=== PATIENT | male | born 1990 | race Caucasian/White ===

== ENCOUNTER 2016-09-16 16:06 | Emergency (ER) | payer OTHER ==
[2016-09-16 16:23] VITALS: BP 129/80
--- NOTE | 2016-09-16 17:21 | UC ---
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 no blood in stool 5 pound wt loss - History of Current Complaint Chief Complaint: UCAbdominalPain Stated Complaint: LEFT SIDE ABD PAIN 4 DAYS Time Seen by Provider: 09/16/16 17:02 Hx Obtained From: Patient Onset/Duration: Gradual Onset, Lasting Minutes, Lasting Days Severity Initially: Mild Severity Currently: Mild Pain Intensity: 2 Pain Scale Used: 0-10 Numeric Location: Other - see image Radiates: No Character: Aching, Dull Aggravating Factor(s):: Movement Alleviating Factor(s): Rest Associated Signs And Symptoms: Negative: Diaphoresis, Fever, Cough, Chest Pain, Dizzy, Back Pain, Constipation, Blood in Stool, Urinary Symptoms, Decreased Appetite, Nausea, Vomiting, Diarrhea, Penile Discharge Male Torso: 1 - pain - Allergies/Home Medications Allergies/Adverse Reactions: Allergies Allergy/AdvReac Type Severity Reaction Status Date / Time No Known Allergies Allergy Verified 09/16/16 16:23 Home Medications: Home Medications Pancrelipase (Lipase-Protease- [Creon 6000 Unit] 36,000 units PO TID 09/16/16 [ History Confirmed 09/16/16] PMH/Surg Hx/FS Hx/Imm Hx Endocrine History Of: Denies: Diabetes, Thyroid Disease, Hyperthyroidism, Hypothyroidism, Dyslipidemia Cardiovascular History Of: Denies: Cardiac Disorders, Hypertension, Pacemaker/ICD, Myocardial Infarction , Congestive Heart Failure, Atrial Fibrillation, Deep Vein Thrombosis, Bleeding Disorders Respiratory History Of: Denies: COPD, Asthma, Bronchitis, Pneumonia, Pulmonary Embolism GI/ History Of: Denies: Gastroesophageal Reflux, Ulcer, Gastrointestinal Bleed, Gall Bladder Disease, Kidney Stones, Diverticulitis, Renal Disease, Urosepsis Neurological History Of: Denies: TIA, CVA, Dementia, Seizures, Migraine Psychological History Of: Denies: Anxiety, Depression, Bipolar Disorder, Schizophrenia, Post Traumatic Stress Disorder Cancer History Of: Denies: Lung Cancer, Colorectal Cancer, Breast Cancer, Prostate Cancer, Cervical Cancer Other History Of: Negative For: HIV, Hepatitis B, Hepatitis C - Surgical History Surgical History: Yes Surgery Procedure, Year, and Place: WISDOM TEETH EXTRACTIONS - Family History Known Family History: Positive: None - Social History Alcohol Use: Weekly Substance Use Type: None Smoking Status (MU): Never Smoked Tobacco - Immunization History Most Recent Influenza Vaccination: no Review of Systems Constitutional: Fatigue Skin: Negative Eyes: Negative ENT: Negative Respiratory: Negative Cardiovascular: Negative Gastrointestinal: Abdominal Pain Genitourinary: Negative Motor: Negative Neurovascular: Negative Musculoskeletal: Negative Neurological: Negative Psychological: Negative All Other Systems Reviewed And Are Negative: Yes Physical Exam Triage Information Reviewed: Yes Appearance: Well-Appearing, No Pain Distress, Well-Nourished, Thin Vital Signs: Initial Vital Signs Temp 98.7 F 09/16/16 16:18 Pulse 88 09/16/16 16:18 Resp 16 09/16/16 16:18 BP 129/80 09/16/16 16:18 Pulse Ox 100 09/16/16 16:18 Vital Signs Reviewed: Yes Eyes: Positive: Conjunctiva Clear ENT: Positive: Hearing grossly normal. Negative: Nasal congestion, Nasal drainage, Trismus, Muffled/hoarse voice Neck: Positive: Supple, Nontender Respiratory: Positive: Lungs clear, Normal breath sounds, No respiratory distress Cardiovascular: Positive: RRR, No Murmur Abdomen Description: Positive: No Organomegaly, Soft. Negative: Nontender - see image, Bruit, Splenomegaly Bowel Sounds: Positive: Present Musculoskeletal: Positive: ROM Intact, No Edema Neurological: Positive: Alert Psychological Exam: Normal Skin Exam: Normal Skin: Positive: rashes Abd Pain Male Course/Dx - Differential Dx/Clinical Impression Provider Diagnoses: lefe sided abd pain of uncertain cause Discharge - Discharge Plan Condition: Stable Disposition: HOME Patient Education Materials: Acute Abdominal Pain (ED) Referrals: Get Haji DO [Primary Care Provider] - As Soon As Possible Additional Instructions: blood work is pending I am unsure of the cause of your pain I suggest you go to the ER for: worsening pain fever vomiting If symptoms persist you may need further evaluation (colonoscopy/imaging) tylenol for pain Images Front/Back of Body, Lg (Avery): 1 - tender
--- NOTE | 2016-09-16 17:57 | RAD ---
Indication: 4 days LEFT lower quadrant abdominal pain. Comparison: None. Technique: Supine abdomen. Report: Normal bowel gas pattern. No suspicious calcifications or mass effect. Unremarkable soft tissue contours. Clear lung bases. IMPRESSION: Negative exam.
[2016-09-17 12:18] LABS: Hematocrit 41 % (42-52); Hemoglobin 13.8 g/dl (14.0-18.0); Mean Corpuscular HGB Conc 34 g/dl (31-36); Mean Corpuscular Hemoglobin 29 pg (27-31); Mean Corpuscular Volume 87 fL (80-94); Mean Platelet Volume 9 um3 (7.4-10.4); Red Blood Count 4.71 10^6/ul (4.0-5.4); Red Cell Distribution Width 13 % (10.5-15)
[2016-09-17 12:26] LABS: Albumin 4.7 g/dL (3.2-5.2); BUN/Creatinine Ratio 14.1 (8-20); Calcium 9.6 mg/dL (8.6-10.3); EGFR African American 117.5 (>60); EGFR Non-African American 91.4 (>60); Globulin 2.8 g/dL (2-4); Potassium 3.7 mmol/L (3.5-5.0); Total Bilirubin 1.3 mg/dL (0.2-1.0); Total Protein 7.5 g/dL (6.4-8.9)
[2016-09-17 14:52] LABS: Erythrocyte Sed Rate 6 mm/Hr (0-14)
== END 2016-09-16 18:18 | disposition home or self-care (01) ==
LOC: UCCORT 16:06
DX: R10.814 Left lower quadrant abdominal tenderness (principal); R53.83 Other fatigue; K86.89 Other specified diseases of pancreas
CPT/HCPCS: 36415; 74000; 80053; 85025; 85652; 99211; G0463

== ENCOUNTER 2016-12-19 16:52 | Emergency (ER) | payer OTHER ==
[2016-12-19 17:53] VITALS: BP 136/68
--- NOTE | 2016-12-19 18:19 | UC ---
Head Injury HPI - HPI Summary HPI Summary: The patient comes in today for: 1. Head injury: Onset: Last night. Palliative/provocative: Bright lights, loud sounds and movement makes his symptoms worse. Quality: ache Region: Head Severity: 6/10 Time: Constant. Associated symptoms: Event: He was on scafolding and fell off. But he did not hit his head. He got up quick to catch the freshly glued crown molding to prevent it from falling. During this process, he hit the second step of the scafolding. After hitting it, he states that the head hurt "badly." He just went to bed. He woke up in the "middle of the night." He had vertigo and nausea when he got up. He went to get a drink (a glass of water), and went right back to bed. He slept from "the middle of the night" until about 7:30 AM. He got up at that time and still felt vertiginous along with the headache, left upper jain. He went to work. 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 He states that he could not look at his computer due to photophobia. He stated that focusing made him nauseated. HE continued to have vertigo and headache. He finished work at 4: 15 PM. He then came to see us. At this time (he is sitting) he is OK with his vertigo/nausea. He states that his headache is about a 6/10. He denies any LOC , and denies any numbness or weakness of the arms or legs. No history of eye problems, or strabismus or diplopia. Head injury: None. * - History Of Current Complaint Chief Complaint: UCHeadInjury Stated Complaint: HEAD INJURY Time Seen by Provider: 12/19/16 18:06 Hx Obtained From: Patient - Allergies/Home Medications Allergies/Adverse Reactions: Allergies Allergy/AdvReac Type Severity Reaction Status Date / Time No Known Allergies Allergy Verified 12/19/16 17:53 Home Medications: Home Medications Acetaminophen [Acetaminophen Extra Stren] 2 tab PO Q6H PRN 12/19/16 [History Confirmed 12/19/16] PMH/Surg Hx/FS Hx/Imm Hx Previously Healthy: No - poor pancreatic function. Endocrine History Of: Denies: Diabetes, Thyroid Disease, Hyperthyroidism, Hypothyroidism, Dyslipidemia Cardiovascular History Of: Denies: Cardiac Disorders, Hypertension, Pacemaker/ICD, Myocardial Infarction , Congestive Heart Failure, Atrial Fibrillation, Deep Vein Thrombosis, Bleeding Disorders Respiratory History Of: Denies: COPD, Asthma, Bronchitis, Pneumonia, Pulmonary Embolism GI/ History Of: Denies: Gastroesophageal Reflux, Ulcer, Gastrointestinal Bleed, Gall Bladder Disease, Kidney Stones, Diverticulitis, Renal Disease, Urosepsis Neurological History Of: Denies: TIA, CVA, Dementia, Seizures, Migraine Psychological History Of: Denies: Anxiety, Depression, Bipolar Disorder, Schizophrenia, Post Traumatic Stress Disorder Cancer History Of: Denies: Lung Cancer, Colorectal Cancer, Breast Cancer, Prostate Cancer, Cervical Cancer Other History Of: Negative For: HIV, Hepatitis B, Hepatitis C, Anticoagulant Therapy - Surgical History Surgical History: Yes Surgery Procedure, Year, and Place: WISDOM TEETH EXTRACTIONS - Family History Known Family History: Positive: Hypertension Negative: Cardiac Disease - Social History Occupation: Employed Full-time Alcohol Use: Occasionally Substance Use Type: None Smoking Status (MU): Never Smoked Tobacco - Immunization History Most Recent Influenza Vaccination: no Review of Systems Constitutional: Negative Skin: Negative Eyes: Photophobia ENT: Negative Respiratory: Negative Cardiovascular: Negative Gastrointestinal: Negative Genitourinary: Negative Neurological: Headache All Other Systems Reviewed And Are Negative: Yes Physical Exam Triage Information Reviewed: Yes Appearance: Well-Appearing, No Pain Distress, Well-Nourished Vital Signs: Initial Vital Signs Temp 97.5 F 12/19/16 17:47 Pulse 88 12/19/16 17:47 Resp 15 12/19/16 17:47 BP 136/68 12/19/16 17:47 Pulse Ox 100 12/19/16 17:47 Vital Signs Reviewed: Yes Eyes: Positive: Conjunctiva Clear. Negative: Discharge ENT: Positive: Hearing grossly normal, Other: - Head: He has an area of edema at the left upper. Negative: Pharyngeal erythema, Nasal congestion - Head: He has an area of edema at the left upper jain area. No soft "give away" sensation, but tender. No ecchymosis., Nasal drainage, TM bulging, TM dull, TM red, Tonsillar swelling, Tonsillar exudate Dental: Negative: Gross Decay/Caries @, Dental Fracture @ Neck: Positive: Supple, Nontender, No Lymphadenopathy. Negative: Nuchal Rigidity Respiratory: Positive: Chest non-tender, Lungs clear, No respiratory distress, No accessory muscle use. Negative: Crackles Cardiovascular: Positive: RRR, No Murmur Abdomen Description: Positive: Nontender, No Organomegaly, Soft. Negative: Distended, Guarding Musculoskeletal: Positive: Strength Intact, ROM Intact, No Edema Neurological: Positive: Alert, Muscle Tone Normal Psychological: Positive: Age Appropriate Behavior, Consolable Skin: Negative: rashes, breakdown - Neurologic exam: Inspection: No fasciculations. Tone: No rigidity. Strenth: Upper extremity: symmetrical and appropriate for age. Lower extremity: symmetrical and appropriate for age. Cranial nerves: I-XII normal. Reflexes: Upper extremity Biceps : 2+/2 x 2 Triceps: 2+/2 x 2 Brachioradialis: 2+/2 x 2 Lower extremity: Achilles: 2+/2 x 2 Patellar: 2+/2 x 2 Babinski: downgoing bilaterally. Sensation: No complaints of loss of sensation. Coordination: Upper extremity: Finger to nose, patting of thighs (and alternating) and finger to thumb tests: Normal for both extremities. Lower extremity: Heel up and down vill[place]uerte: Normal for both extremities. Gait: Heel to toe: Normal REgular walking: Normal Rhomberg: Normal. Diagnostics - Laboratory Diagnostic Studies Completed/Ordered: CT scan: negative. - Radiology No standard instances Xray Interpretation: No Acute Changes Radiology Interpretation Completed By: Radiologist Head Injury Course/Dx - Course Course Of Treatment: He denies any medication for nausea or headache. - Differential Dx/Diagnosis Differential Diagnosis/HQI/PQRI: Concussion Without LOC Provider Diagnoses: Concussion without LOC Discharge - Discharge Plan Condition: Stable Disposition: HOME Patient Education Materials: Concussion (ED) Forms: *Work Release Referrals: Get Haji, DO [Primary Care Provider] - 3 Days (Please see your primary care provider in a couple days to see how well you are doing. If you get worse , please be seen sooner in the ER. Use [id number] medications as needed for comfort.) Additional Instructions: Don't do anything strenuous physically or mentally until medical cleared.
--- NOTE | 2016-12-19 19:07 | RAD ---
INDICATION: Head injury. COMPARISON: There are no prior studies available for comparison. TECHNIQUE: Contiguous axial sections of the brain were obtained from the skull base to the vertex without contrast. FINDINGS: The ventricles, cisterns and sulci are within normal limits. No significant focal abnormality or mass effect is seen. There is no evidence for hemorrhage. No significant focal osseous abnormality is seen. The visualized portion of the paranasal sinuses and mastoid air cells appear clear. IMPRESSION: NO EVIDENCE FOR ACUTE INTRACRANIAL ABNORMALITY.
== END 2016-12-19 19:23 | disposition home or self-care (01) ==
LOC: UCCORT 16:52
DX: S06.0X0A Concussion without loss of consciousness, initial encounter (principal); W22.09XA Striking against other stationary object, initial encounter; Y93.9 Activity, unspecified; Y99.9 Unspecified external cause status
CPT/HCPCS: 70450; 99211; G0463

== ENCOUNTER 2017-01-24 12:09 | Emergency (ER) | payer OTHER ==
[2017-01-24 12:46] LABS: Hematocrit 45 % (42-52); Hemoglobin 15.2 g/dl (14.0-18.0); Mean Corpuscular HGB Conc 34 g/dl (31-36); Mean Corpuscular Hemoglobin 30 pg (27-31); Mean Corpuscular Volume 88 fL (80-94); Mean Platelet Volume 8 um3 (7.4-10.4); Red Blood Count 5.13 10^6/ul (4.0-5.4); Red Cell Distribution Width 13 % (10.5-15); White Blood Count 8.7 10^3/ul (3.5-10.8)
[2017-01-24 12:58] LABS: Albumin 4.9 g/dL (3.2-5.2); BUN/Creatinine Ratio 12.1 (8-20); C Reactive Protein 3.14 mg/L (< 5.00); Calcium 9.6 mg/dL (8.6-10.3); EGFR African American 117.5 (>60); EGFR Non-African American 91.4 (>60); Potassium 3.4 mmol/L (3.5-5.0); Total Bilirubin 2.6 mg/dL (0.2-1.0); Total Protein 7.9 g/dL (6.4-8.9)
--- NOTE | 2017-01-24 13:21 | RAD ---
Indication: Shortness of breath, palpitations. 2 views of the chest including dual energy PA views demonstrate no mediastinal shift. Heart is of normal size and configuration. Lung longo demonstrate no pleural fluid, pneumonia or pneumothorax. Compared to previous exam September 15, 2014 no significant change is noted. IMPRESSION: No active cardiopulmonary disease is noted.
[2017-01-24 13:56] LABS: Urine Bacteria Absent (Absent); Urine Bilirubin Negative (Negative); Urine Glucose Negative (Negative); Urine Nitrite Negative (Negative)
[2017-01-24] MEDS ORDERED: NS 0.9% 1000 ML* 1,000 ML IV ONE (15:14)
[2017-01-24 15:25] LABS: Benzodiazepine Urine Screen None Detected (None Detect)
[2017-01-24] MEDS ORDERED: Potassium Chlor TAB* 20 MEQ TAB.ER PO ONE (15:46)
[2017-01-24 16:48] VITALS: BP 121/79
--- NOTE | 2017-01-24 18:37 | ED ---
Manuel Aguiar Billy, scribed for Shantanu Hercules MD on 01/24/17 at 1237 . Palpitations / Dysrhythmia - HPI Summary HPI Summary: Patient is a 26 year-old male coming to [facility] for evaluation of rapid palpitations and intermittent shortness of breath since yesterday evening. He recently got home from a 7-hour drive from [place]. He denies any chest pain or leg pain/swelling. Denies fevers, chills, or cough. Denies similar previous episodes. Denies excessive caffeine or energy-drink consumption. - History of Current Complaint Chief Complaint: EDDysrhythmPalp Time Seen by Provider: 01/24/17 12:31 Hx Obtained From: Patient Onset/Duration: Gradual Onset Timing: Intermittent Episodes Lasting: Severity Initially: Moderate Severity Currently: Moderate Character: Fast Aggravating: Nothing Alleviating: Nothing Associated Signs & Symptoms: Shortness of Breath - Allergy/Home Medications Allergies/Adverse Reactions: Allergies Allergy/AdvReac Type Severity Reaction Status Date / Time No Known Allergies Allergy Verified 12/19/16 17:53 PMH/Surg Hx/FS Hx/Imm Hx Endocrine/Hematology History: Denies: Hx Anticoagulant Therapy, Hx Diabetes, Hx Thyroid Disease Cardiovascular History: Denies: Hx Congestive Heart Failure, Hx Deep Vein Thrombosis, Hx Hypertension , Hx Myocardial Infarction, Hx Pacemaker/ICD Respiratory History: Denies: Hx Asthma, Hx Chronic Obstructive Pulmonary Disease (COPD), Hx Lung Cancer, Hx Pneumonia, Hx Pulmonary Embolism GI History: Denies: Hx Gall Bladder Disease, Hx Gastrointestinal Bleed, Hx Ulcer, Hx Urosepsis History: Denies: Hx Kidney Stones, Hx Renal Disease Neurological History: Denies: Hx Dementia, Hx Migraine, Hx Seizures, Hx Transient Ischemic Attacks (TIA) Psychiatric History: Denies: Hx Anxiety, Hx Depression, Hx Schizophrenia, Hx Bipolar Disorder - Surgical History Surgery Procedure, Year, and Place: WISDOM TEETH EXTRACTIONS Infectious Disease History: Denies: Traveled Outside the [place] in Last 30 Days - Family History Known Family History: Positive: Hypertension Negative: Cardiac Disease - Social History Alcohol Use: Occasionally Substance Use Type: Reports: None Smoking Status (MU): Never Smoked Tobacco Review of Systems Negative: Fever, Chills Positive: Palpitations. Negative: Chest Pain Positive: Shortness Of Breath. Negative: Cough Negative: Myalgia, Edema All Other Systems Reviewed And Are Negative: Yes Physical Exam - Summary Physical Exam Summary: VITAL SIGNS: Reviewed. GENERAL: Patient is a well-developed and nourished male who is lying comfortable in the stretcher. Patient is not in any acute respiratory distress. HEAD AND FACE: No signs of trauma. No ecchymosis, hematomas or skull depressions. No sinus tenderness. EYES: PERRLA, EOMI x 2, No injected conjunctiva, no nystagmus. EARS: Hearing grossly intact. Ear canals and tympanic membranes are within normal limits. MOUTH: Oropharynx within normal limits. NECK: Supple, trachea is midline, no adenopathy, no JVD, no carotid bruit, no c- spine tenderness, neck with full ROM. CHEST: Symmetric, no tenderness at palpation LUNGS: Clear to auscultation bilaterally. No wheezing or crackles. CVS: Tachycardia regular rhythm, S1 and S2 present, no murmurs or gallops appreciated. ABDOMEN: Soft, non-tender. No signs of distention. No rebound no guarding, and no masses palpated. Bowel sounds are normal. EXTREMITIES: FROM in all major joints, no edema, no cyanosis or clubbing. NEURO: Alert and oriented x 3. No acute neurological deficits. Speech is normal and follows commands. SKIN: Dry and warm Triage Information Reviewed: Yes Vital Signs On Initial Exam: Initial Vitals Temp Pulse Resp BP Pulse Ox 98.8 F 150 18 144/59 99 01/24/17 12:11 01/24/17 12:11 01/24/17 12:11 01/24/17 12:11 01/24/17 12:11 Vital Signs Reviewed: Yes Diagnostics - Vital Signs Vital Signs Temp Pulse Resp BP Pulse Ox 01/24/17 12:11 98.8 F 150 18 144/59 99 - Laboratory Lab Results: Lab Results 01/24/17 01/24/17 01/24/17 Range/Units 12:25 12:25 12:25 WBC 8.7 (3.5-10.8) 10^3/ul RBC 5.13 (4.0-5.4) 10^6/ul Hgb 15.2 (14.0-18.0) g/dl Hct 45 (42-52) % MCV 88 (80-94) fL MCH 30 (27-31) pg MCHC 34 (31-36) g/dl RDW 13 (10.5-15) % Plt Count 268 (150-450) 10^3/ul MPV 8 (7.4-10.4) um3 Neut % (Auto) 56.5 (38-83) % Lymph % (Auto) 33.1 (25-47) % Morrill % (Auto) 8.1 (1-9) % Eos % (Auto) 1.3 (0-6) % Baso % (Auto) 1.0 (0-2) % Absolute Neuts (auto) 4.9 (1.5-7.7) 10^3/ul Absolute Lymphs (auto) 2.9 (1.0-4.8) 10^3/ul Absolute Monos (auto) 0.7 (0-0.8) 10^3/ul Absolute Eos (auto) 0.1 (0-0.6) 10^3/ul Absolute Basos (auto) 0.1 (0-0.2) 10^3/ul Absolute Nucleated RBC 0.01 10^3/ul Nucleated RBC % 0.1 D-Dimer, Quantitative (Less Than 230) ng/mL Sodium 137 (133-145) mmol/L Potassium 3.4 L (3.5-5.0) mmol/L Chloride 99 L (101-111) mmol/L Carbon Dioxide 26 (22-32) mmol/L Anion Gap 12 H (2-11) mmol/L BUN 12 (6-24) mg/dL Creatinine 0.99 (0.67-1.17) mg/dL Est GFR ( Amer) 117.5 (>60) Est GFR (Non-Af Amer) 91.4 (>60) BUN/Creatinine Ratio 12.1 (8-20) Glucose 92 (70-100) mg/dL Lactic Acid 1.4 (0.5-2.0) mmol/L Calcium 9.6 (8.6-10.3) mg/dL Total Bilirubin 2.60 H (0.2-1.0) mg/dL AST 28 (13-39) U/L ALT 14 (7-52) U/L Alkaline Phosphatase 70 (34-104) U/L Total Creatine Kinase 307 H (10-223) U/L Troponin I 0.00 (<0.04) ng/mL C-Reactive Protein 3.14 (< 5.00) mg/L B-Natriuretic Peptide ( - 100) pg/mL Total Protein 7.9 (6.4-8.9) g/dL Albumin 4.9 (3.2-5.2) g/dL Globulin 3.0 (2-4) g/dL Albumin/Globulin Ratio 1.6 (1-3) Urine Color Urine Appearance Urine pH (5-9) Ur Specific [place] (1.010-1.030) Urine Protein (Negative) Urine Ketones (Negative) Urine Blood (Negative) Urine Nitrate (Negative) Urine Bilirubin (Negative) Urine Urobilinogen (Negative) Ur Leukocyte Esterase (Negative) Urine WBC (Auto) (Absent) Urine RBC (Auto) (Absent) Ur Squamous Epith Cells (Absent) Urine Bacteria (Absent) Urine Glucose (Negative) Urine Opiates Screen (None Detect) Ur Barbiturates Screen (None Detect) Ur Phencyclidine Scrn (None Detect) Ur Amphetamines Screen (None Detect) U Benzodiazepines Scrn (None Detect) Urine Cocaine Screen (None Detect) U Cannabinoids Screen (None Detect) 01/24/17 01/24/17 01/24/17 Range/Units 12:25 12:25 13:40 WBC (3.5-10.8) 10^3/ul RBC (4.0-5.4) 10^6/ul Hgb (14.0-18.0) g/dl Hct (42-52) % MCV (80-94) fL MCH (27-31) pg MCHC (31-36) g/dl RDW (10.5-15) % Plt Count (150-450) 10^3/ul MPV (7.4-10.4) um3 Neut % (Auto) (38-83) % Lymph % (Auto) (25-47) % Morrill % (Auto) (1-9) % Eos % (Auto) (0-6) % Baso % (Auto) (0-2) % Absolute Neuts (auto) (1.5-7.7) 10^3/ul Absolute Lymphs (auto) (1.0-4.8) 10^3/ul Absolute Monos (auto) (0-0.8) 10^3/ul Absolute Eos (auto) (0-0.6) 10^3/ul Absolute Basos (auto) (0-0.2) 10^3/ul Absolute Nucleated RBC 10^3/ul Nucleated RBC % D-Dimer, Quantitative < 200 (Less Than 230) ng/mL Sodium (133-145) mmol/L Potassium (3.5-5.0) mmol/L Chloride (101-111) mmol/L Carbon Dioxide (22-32) mmol/L Anion Gap (2-11) mmol/L BUN (6-24) mg/dL Creatinine (0.67-1.17) mg/dL Est GFR ( Amer) (>60) Est GFR (Non-Af Amer) (>60) BUN/Creatinine Ratio (8-20) Glucose (70-100) mg/dL Lactic Acid (0.5-2.0) mmol/L Calcium (8.6-10.3) mg/dL Total Bilirubin (0.2-1.0) mg/dL AST (13-39) U/L ALT (7-52) U/L Alkaline Phosphatase (34-104) U/L Total Creatine Kinase (10-223) U/L Troponin I (<0.04) ng/mL C-Reactive Protein (< 5.00) mg/L B-Natriuretic Peptide 20 ( - 100) pg/mL Total Protein (6.4-8.9) g/dL Albumin (3.2-5.2) g/dL Globulin (2-4) g/dL Albumin/Globulin Ratio (1-3) Urine Color Yellow Urine Appearance Clear Urine pH 7.0 (5-9) Ur Specific [place] 1.026 (1.010-1.030) Urine Protein 1+(30 mg/dl) H (Negative) Urine Ketones 1+ H (Negative) Urine Blood Negative (Negative) Urine Nitrate Negative (Negative) Urine Bilirubin Negative (Negative) Urine Urobilinogen Negative (Negative) Ur Leukocyte Esterase Trace H (Negative) Urine WBC (Auto) Trace(0-5/hpf) (Absent) Urine RBC (Auto) 1+(3-5/hpf) H (Absent) Ur Squamous Epith Cells Present H (Absent) Urine Bacteria Absent (Absent) Urine Glucose Negative (Negative) Urine Opiates Screen (None Detect) Ur Barbiturates Screen (None Detect) Ur Phencyclidine Scrn (None Detect) Ur Amphetamines Screen (None Detect) U Benzodiazepines Scrn (None Detect) Urine Cocaine Screen (None Detect) U Cannabinoids Screen (None Detect) 01/24/17 Range/Units 15:00 WBC (3.5-10.8) 10^3/ul RBC (4.0-5.4) 10^6/ul Hgb (14.0-18.0) g/dl Hct (42-52) % MCV (80-94) fL MCH (27-31) pg MCHC (31-36) g/dl RDW (10.5-15) % Plt Count (150-450) 10^3/ul MPV (7.4-10.4) um3 Neut % (Auto) (38-83) % Lymph % (Auto) (25-47) % Morrill % (Auto) (1-9) % Eos % (Auto) (0-6) % Baso % (Auto) (0-2) % Absolute Neuts (auto) (1.5-7.7) 10^3/ul Absolute Lymphs (auto) (1.0-4.8) 10^3/ul Absolute Monos (auto) (0-0.8) 10^3/ul Absolute Eos (auto) (0-0.6) 10^3/ul Absolute Basos (auto) (0-0.2) 10^3/ul Absolute Nucleated RBC 10^3/ul Nucleated RBC % D-Dimer, Quantitative (Less Than 230) ng/mL Sodium (133-145) mmol/L Potassium (3.5-5.0) mmol/L Chloride (101-111) mmol/L Carbon Dioxide (22-32) mmol/L Anion Gap (2-11) mmol/L BUN (6-24) mg/dL Creatinine (0.67-1.17) mg/dL Est GFR ( Amer) (>60) Est GFR (Non-Af Amer) (>60) BUN/Creatinine Ratio (8-20) Glucose (70-100) mg/dL Lactic Acid (0.5-2.0) mmol/L Calcium (8.6-10.3) mg/dL Total Bilirubin (0.2-1.0) mg/dL AST (13-39) U/L ALT (7-52) U/L Alkaline Phosphatase (34-104) U/L Total Creatine Kinase (10-223) U/L Troponin I (<0.04) ng/mL C-Reactive Protein (< 5.00) mg/L B-Natriuretic Peptide ( - 100) pg/mL Total Protein (6.4-8.9) g/dL Albumin (3.2-5.2) g/dL Globulin (2-4) g/dL Albumin/Globulin Ratio (1-3) Urine Color Urine Appearance Urine pH (5-9) Ur Specific [place] (1.010-1.030) Urine Protein (Negative) Urine Ketones (Negative) Urine Blood (Negative) Urine Nitrate (Negative) Urine Bilirubin (Negative) Urine Urobilinogen (Negative) Ur Leukocyte Esterase (Negative) Urine WBC (Auto) (Absent) Urine RBC (Auto) (Absent) Ur Squamous Epith Cells (Absent) Urine Bacteria (Absent) Urine Glucose (Negative) Urine Opiates Screen None detected (None Detect) Ur Barbiturates Screen None detected (None Detect) Ur Phencyclidine Scrn None detected (None Detect) Ur Amphetamines Screen Presumptive positive H (None Detect) U Benzodiazepines Scrn None detected (None Detect) Urine Cocaine Screen None detected (None Detect) U Cannabinoids Screen None detected (None Detect) Result Diagrams: 01/24/17 12:25 01/24/17 12:25 Lab Statement: Any lab studies that have been ordered have been reviewed, and results considered in the medical decision making process. - Radiology CXR Xray Interpretation: No Acute Changes Radiology Interpretation Completed By: Radiologist - EKG 1215 EKG Interpretation: sinus tachycardia 135 bpm, no STEMI Re-Evaluation - Re-Evaluation First Eval Re-Evaluation Time: 16:24 Change: Improved Comment: Test findings reviewed. HR is 82 bpm. Course/Dx - Course Assessment/Plan: Patient is a 26 year-old male coming to [facility] for evaluation of rapid palpitations and intermittent shortness of breath since yesterday evening. He recently got home from a 7-hour drive from [place]. He denies any chest pain or leg pain/swelling. Denies fevers, chills, or cough. Denies similar previous episodes. Denies excessive caffeine or energy-drink consumption. Test results WNL except for potassium of 3.4. CPK of 307. UA is contaminated. Urine toxicology is positive for amphetamines. In the ED course, the patient was given IV fluids and his heart rate has decreased to between 90 and 98 bpm. At this point, the patient is asymptomatic, he has no complaints, therefore, we will discharge him home to follow up with PCP. The patient is hemodynamically stable, A&Ox3. I discussed all the findings and test results with the patient. Patient was instructed to return to the emergency room immediately if any of the symptoms return or worsens. Plan of care was discussed with the patient and understands and agrees. All questions were answered at patient satisfaction. There were no further complaints or concerns. Lung exam before discharge: CTA B/L. Good air exchange. No wheezing or crackles heard. CVS: S1 and S2 present. No murmurs appreciated. Patient is alert and oriented x 3. Patient is hemodynamically stable. Patient will be discharged home with follow up PCP in the next 2-3 days - Diagnoses Differential Diagnosis/HQI/PQRI: Positive: Paroxymal SVT, Pulmonary Embolism, Other - Arrythmia Provider Diagnoses: Dehydration, Palpitations Discharge - Discharge Plan Condition: Stable Disposition: HOME Patient Education Materials: Palpitations (ED), Dehydration (ED) Referrals: Get Haji DO [Primary Care Provider] - The documentation as recorded by the Manuel loyola Billy accurately reflects the service I personally performed and the decisions made by me, Shantanu Hercules MD.
== END 2017-01-24 16:48 | disposition home or self-care (01) ==
LOC: ED 12:09
DX: R00.2 Palpitations (principal); E86.0 Dehydration; R06.02 Shortness of breath
CPT/HCPCS: 36415; 71020; 80053; 80307; 81003; 81015; 82550; 83605; 83880; 84484; 85025; 85379; 86140; 87040; 87086; 93005; 99284; A9270-GY

== ENCOUNTER 2017-04-05 08:00 | Emergency (ER) | payer OTHER ==
[2017-04-05 08:11] VITALS: BP 114/69
--- NOTE | 2017-04-05 08:28 | UC ---
Eye Complaint HPI - HPI Summary HPI Summary: Pain in the inner corner of the right eye. There has been no drainage, eye globe pain, contact lens use, trauma, headache, sinus congestion, or rash. NO photophobia. - History of Current Complaint Chief Complaint: UCEye Stated Complaint: RIGHT EYE COMPLAINT Time Seen by Provider: 04/05/17 08:11 Hx Obtained From: Patient Onset/Duration: Gradual Onset, Lasting Days Timing: Constant Severity Initially: Severe Severity Currently: Mild Aggravating Factor(s): Other - touch. Alleviating Factor(s): Nothing Associated Signs And Symptoms: Negative: Photophobia, Drainage (Clear), Drainage (Purulent), Vision Impairment Bilateral, Vision Impairment Right, Vision Impairment Left, Fever, Swelling - Allergies/Home Medications Allergies/Adverse Reactions: Allergies Allergy/AdvReac Type Severity Reaction Status Date / Time No Known Allergies Allergy Verified 04/05/17 08:06 PMH/Surg Hx/FS Hx/Imm Hx Previously Healthy: Yes - no prior eye disease. Other History Of: Negative For: HIV, Hepatitis B, Hepatitis C, Anticoagulant Therapy - Surgical History Surgical History: Yes Surgery Procedure, Year, and Place: WISDOM TEETH EXTRACTIONS - Family History Known Family History: Positive: None, Hypertension Negative: Cardiac Disease - Social History Occupation: Employed Full-time Alcohol Use: Occasionally Substance Use Type: None Smoking Status (MU): Never Smoked Tobacco - Immunization History Most Recent Influenza Vaccination: no Review of Systems Eyes: Other - inner eye pain. All Other Systems Reviewed And Are Negative: Yes Physical Exam Triage Information Reviewed: Yes Appearance: Well-Appearing, No Pain Distress, Well-Nourished Vital Signs: Initial Vital Signs Temp 98.7 F 04/05/17 08:07 Pulse 79 04/05/17 08:07 Resp 16 04/05/17 08:07 BP 114/69 04/05/17 08:07 Pulse Ox 99 04/05/17 08:07 Vital Signs Reviewed: Yes Eye Exam: Normal Eyes: Positive: Conjunctiva Clear. Negative: Conjunctiva Inflamed, Discharge, Other: - THere is inner canthus tenderness without redness or swelling. There is no draingage or redness. No stye. Fundoscopic neg for lesions, papilledama. ENT Exam: Normal ENT: Positive: Pharynx normal, TMs normal. Negative: Tonsillar swelling, Tonsillar exudate, Trismus, Muffled/hoarse voice Neck exam: Normal Neck: Positive: Supple, Nontender, No Lymphadenopathy Respiratory Exam: Normal Cardiovascular Exam: Normal Abdominal Exam: Normal Musculoskeletal Exam: Normal Musculoskeletal: Positive: Strength Intact, ROM Intact, No Edema Neurological Exam: Normal Neurological: Positive: Alert, Muscle Tone Normal, Fatigued Psychological Exam: Normal Skin Exam: Normal Eye Complaint Course/Dx - Course Course Of Treatment: inner canthus tendenress without proptosis, pain with eye movement or sinus tenderness. We ahve considerred sinusitis, pre septal cellulits, cavernous thrombosis. We will try warm compresses and antibiotics and follow up with Dr. Sam tomorrow. - Differential Dx/Diagnosis Differential Diagnosis/HQI/PQRI: Conjunctivitis, Corneal Abrasion, Detached Retina, Foreign Body, Glaucoma, Hyphema, Penetrating Injury, Orbital Cellulitis , Retinal Artery Occlusion, Uveitis Provider Diagnoses: inner canthus eye tenderness. Discharge - Discharge Plan Condition: Good Disposition: HOME Prescriptions: Cephalexin CAP* [Keflex CAP*] 500 mg PO TID #15 cap Patient Education Materials: Warm Compress or Soak (ED) Referrals: Get Haji DO [Primary Care Provider] - Hakeem Sam MD [Medical Doctor] - 1 Day
== END 2017-04-05 08:37 | disposition home or self-care (01) ==
LOC: UCCORT 08:00
DX: H57.11 Ocular pain, right eye (principal)
CPT/HCPCS: 99212; G0463

== ENCOUNTER 2017-08-15 07:42 | Emergency (ER) | payer OTHER ==
--- NOTE | 2017-08-15 08:02 | UC ---
Skin Complaint HPI - HPI Summary HPI Summary: pt c/o gradual onset itchy, red, circular, dry flaky area on left anterior chest wall just medial of left shoulder. - History of Current Complaint Chief Complaint: UCSkin Time Seen by Provider: 08/15/17 07:48 Stated Complaint: SKIN COMPLAINT (LT SHOULDER) Hx Obtained From: Patient Onset/Duration: Gradual Onset, Lasting Weeks - 3, Still Present Skin Exposure Onset/Duration: Weeks Ago Timing: Constant Onset Severity: Mild Current Severity: Mild Location: Discrete - left anterior chest wall/ medial to shoulder Character: Pruritus, Redness Aggravating Factor(s): Nothing Alleviating Factor(s): Unknown Associated Signs & Symptoms: Positive: Rash - Allergy/Home Medications Allergies/Adverse Reactions: Allergies Allergy/AdvReac Type Severity Reaction Status Date / Time No Known Allergies Allergy Verified 08/15/17 07:51 Home Medications: Home Medications Amphetamine-Dextroamphetamine [Adderall 10 mg-] 1 tab PO DAILY 08/15/17 [ History Confirmed 08/15/17] Review of Systems Constitutional: Negative Skin: Rash Eyes: Negative ENT: Negative Respiratory: Negative Cardiovascular: Negative Gastrointestinal: Negative Genitourinary: Negative Motor: Negative Neurovascular: Negative Musculoskeletal: Negative Neurological: Negative Psychological: Negative Is Patient Immunocompromised?: No All Other Systems Reviewed And Are Negative: Yes PMH/Surg Hx/FS Hx/Imm Hx Previously Healthy: Yes Other History Of: Negative For: HIV, Hepatitis B, Hepatitis C, Anticoagulant Therapy - Surgical History Surgical History: Yes Surgery Procedure, Year, and Place: WISDOM TEETH EXTRACTIONS - Family History Known Family History: Positive: None, Hypertension Negative: Cardiac Disease - Social History Occupation: Employed Full-time Lives: With Family Alcohol Use: Occasionally Substance Use Type: None Smoking Status (MU): Never Smoked Tobacco Have You Smoked in the Last Year: No - Immunization History Most Recent Influenza Vaccination: no Vaccination Up to Date: No Physical Exam Triage Information Reviewed: Yes Appearance: Well-Appearing Vital Signs: Initial Vital Signs Temp 98.5 F 08/15/17 07:52 Pulse 96 08/15/17 07:52 Resp 18 08/15/17 07:52 BP 124/69 08/15/17 07:52 Vital Signs Reviewed: Yes Eye Exam: Normal ENT Exam: Normal Dental Exam: Normal Neck exam: Normal Respiratory Exam: Normal Cardiovascular Exam: Normal Musculoskeletal Exam: Normal Neurological Exam: Normal Psychological Exam: Normal Skin Exam: Other - circular, erythematous with dry flaking skin, central clearing, area on left anterior upper chest just medial to shoulder ~ 2 cm diameter. Course/Dx - Differential Diagnoses - Skin Complaint Differential Diagnoses: Impetigo, Scabies, Tinea - Diagnoses Provider Diagnoses: tinea Discharge - Discharge Plan Condition: Stable Disposition: HOME Prescriptions: Terbinafine HCl (Topical) [Lamisil At] 1 % EX Q12H #1 tube Patient Education Materials: Skin Yeast Infection (ED) Referrals: Get Haij DO [Primary Care Provider] - If Needed
[2017-08-15 08:14] VITALS: BP 124/69
== END 2017-08-15 08:17 | disposition home or self-care (01) ==
LOC: UCCORT 07:42
DX: B35.9 Dermatophytosis, unspecified (principal)
CPT/HCPCS: 99212; G0463

== ENCOUNTER 2017-11-12 19:31 | Emergency (ER) | payer OTHER ==
[2017-11-12 20:25] VITALS: BP 135/81
--- NOTE | 2017-11-12 20:58 | UC ---
Rectal Pain HPI - HPI Summary HPI Summary: 27 yo male recently traveled to [place] by care Was constipated since trip now with about a 1 1/2 of intense rectal pain much worse with BMs no rectal bleeding he has had a rectal fissure in the past see sees Dr. Santana for pancreas issue - History Of Current Complaint Chief Complaint: UCGU Stated Complaint: RECTAL COMPLAINT Time Seen by Provider: 11/12/17 20:19 Hx Obtained From: Patient Onset/Duration: Sudden Onset, Lasting Days Timing: Constant Severity Initially: Severe Pain Intensity: 8 Pain Scale Used: 0-10 Numeric Location Of Pain: Rectal Character: Sharp Aggravating Factor(s): Bowel Movement Alleviating Factor(s): Nothing Related History: Similar Episode/Dx As - rectal fissure - Allergies/Home Medications Allergies/Adverse Reactions: Allergies Allergy/AdvReac Type Severity Reaction Status Date / Time No Known Allergies Allergy Verified 11/12/17 20:26 Home Medications: Home Medications Ibuprofen 800 mg PO ONCE PRN 11/12/17 [History Confirmed 11/12/17] PMH/Surg Hx/FS Hx/Imm Hx Previously Healthy: Yes Other History Of: Negative For: HIV, Hepatitis B, Hepatitis C, Anticoagulant Therapy - Surgical History Surgical History: None Surgery Procedure, Year, and Place: WISDOM TEETH EXTRACTIONS - Family History Known Family History: Positive: None, Hypertension Negative: Cardiac Disease - Social History Alcohol Use: Occasionally Substance Use Type: None Smoking Status (MU): Never Smoked Tobacco Have You Smoked in the Last Year: No - Immunization History Most Recent Influenza Vaccination: no Vaccination Up to Date: No Review of Systems Constitutional: Negative Skin: Negative Eyes: Negative ENT: Negative Respiratory: Negative Cardiovascular: Negative Gastrointestinal: Other - rectal pain Genitourinary: Negative Motor: Negative Neurovascular: Negative Musculoskeletal: Negative Neurological: Negative Psychological: Negative Is Patient Immunocompromised?: No All Other Systems Reviewed And Are Negative: Yes Physical Exam Triage Information Reviewed: Yes Appearance: Well-Appearing, No Pain Distress, Well-Nourished Vital Signs: Initial Vital Signs Temp 98.9 F 11/12/17 20:18 Pulse 88 11/12/17 20:18 Resp 16 11/12/17 20:18 BP 135/81 11/12/17 20:18 Pulse Ox 100 11/12/17 20:18 Vital Signs Reviewed: Yes Eyes: Positive: Conjunctiva Clear ENT: Negative: TMs normal, Trismus, Muffled voice, Sinus tenderness, Uvula midline Neck: Positive: Supple Respiratory: Positive: Lungs clear, Normal breath sounds, No respiratory distress Cardiovascular: Positive: RRR, No Murmur Abdomen Description: Positive: Nontender, No Organomegaly, Other: - no mass or fissure noted. Negative: CVA Tenderness (R), CVA Tenderness (L) Neurological: Positive: Alert Psychological Exam: Normal Skin Exam: Normal Rectal Pain Course/Dx - Course Course Of Treatment: advise he see his gi doctor if not better in a few days - Differential Dx/Diagnosis Provider Diagnoses: rectal pain/suspect fissure Discharge - Discharge Plan Condition: Stable Disposition: HOME Patient Education Materials: Anal Fissure (ED) Referrals: Jovanny Cisneros MD [Primary Care Provider] - Additional Instructions: Anusol HC suppositories twice daily warm soapy soaks colace at bedtime if needed (stool softner) Follow up with your gi doctor(Dr. Santana) in not improved over the coarse of a few days
== END 2017-11-12 21:09 | disposition home or self-care (01) ==
LOC: UCCORT 19:31
DX: K62.89 Other specified diseases of anus and rectum (principal)
CPT/HCPCS: 99211; G0463

== ENCOUNTER → 2017-11-19 12:15 | Emergency (ER) | payer OTHER ==
[2017-11-19 13:17] VITALS: BP 129/70
--- NOTE | 2017-11-19 13:40 | UC ---
General HPI - HPI Summary HPI Summary: Pt presents with urinary hesitation over the last 3 days. He says that he feels as if he needs to urinate, but when he does - not much urine will come out. He also says he has been constipated over the last 3-4 days, but this is normal for him and he takes OTC medications when this happens..he is not concerned about this today. He denies fever, chills, testicular pain, dysuria, hematuria, penile drainage, incontinence, or sexual activity. Also complains of a growth on the inside of his left ear that is painful and has been getting progressively larger over the last 3 weeks. - History of Current Complaint Chief Complaint: UCGI Stated Complaint: CONSTIPATION Time Seen by Provider: 11/19/17 13:39 Hx Obtained From: Patient Onset Severity: Mild Current Severity: Mild Pain Intensity: 2 - Allergy/Home Medications Allergies/Adverse Reactions: Allergies Allergy/AdvReac Type Severity Reaction Status Date / Time No Known Allergies Allergy Verified 11/12/17 20:26 Home Medications: Home Medications Amoxicillin PO (*) [Amoxicillin 500 MG CAP*] 500 mg PO TID 11/19/17 [History Confirmed 11/19/17] PMH/Surg Hx/FS Hx/Imm Hx Previously Healthy: Yes Other History Of: Negative For: HIV, Hepatitis B, Hepatitis C, Anticoagulant Therapy - Surgical History Surgical History: Yes Surgery Procedure, Year, and Place: WISDOM TEETH EXTRACTIONS - Family History Known Family History: Positive: None, Hypertension Negative: Cardiac Disease - Social History Occupation: Employed Full-time Lives: With Family Alcohol Use: Occasionally Substance Use Type: None Smoking Status (MU): Never Smoked Tobacco Have You Smoked in the Last Year: No - Immunization History Most Recent Influenza Vaccination: no Vaccination Up to Date: No Review of Systems Constitutional: Negative Skin: Negative Respiratory: Negative Cardiovascular: Negative Gastrointestinal: Negative Genitourinary: Other - urinary hesitancy Neurovascular: Negative Neurological: Negative Psychological: Negative All Other Systems Reviewed And Are Negative: Yes Physical Exam - Summary Physical Exam Summary: GENERAL: NAD. WDWN. No pain distress. SKIN: No rashes, sores, ulcers, masses, lesions. NECK: Supple. Nontender. No lymphadenopathy. ENT: Left out ear canal with 5mm fluctuant mass on the outer aspect. Mildly TTP. No erythema or active drainage. CHEST: CTAB. No r/r/w. No accessory muscle use. Breathing comfortably and in no distress. CV: RRR. Without m/r/g. Pulses intact. Brisk cap refill. ABDOMEN: Soft. NTTP. No distention or guarding. No organomegaly. No CVA tenderness. Bowel sounds present x4. NEURO: Alert. CN II-XII grossly intact. PSYCH: Age appropriate behavior. Triage Information Reviewed: Yes Vital Signs: Initial Vital Signs Temp 99.2 F 11/19/17 13:09 Pulse 92 11/19/17 13:09 Resp 16 11/19/17 13:09 BP 129/70 11/19/17 13:09 Pulse Ox 100 11/19/17 13:09 Procedures - Incision and Drainage Site: Left ear Instrument(s): Needle - 18G Course/Dx - Course Course Of Treatment: UA: Negative. I will have him follow up with his PCP for further investigation of his urinary hesitancy. Left ear abscess I&D. Time out was performed, signed, and witnessed. Area was cleansed with alcohol pad. Abscess was lanced with 18G needle. Copious yellow/brown material was able to be expressed. A culture was obtained. Scant bleeding stopped with direct pressure. Pt tolerated well. - Differential Dx - Multi-Symptom Provider Diagnoses: Urinary hesitancy. Left ear abscess Discharge - Sign-Out/Discharge Documenting (check all that apply): Discharge - Discharge Plan Condition: Stable Disposition: HOME Patient Education Materials: Constipation (ED) Referrals: Jovanny Cisneros MD [Primary Care Provider] - Additional Instructions: If you develop a fever, shortness of breath, chest pain, new or worsening symptoms - please call your PCP or go to the ED. 1) Please schedule a follow up appointment with your PCP in regards to your urinary issue if it persists 2) Apply warm compress to your left ear to encourage fluid drainage from the site. - Billing Disposition and Condition Condition: STABLE Disposition: HOME
== END | disposition home or self-care (01) ==
LOC: UCCORT 12:15
DX: R39.11 Hesitancy of micturition (principal); H60.02 Abscess of left external ear
CPT/HCPCS: 10060; 81003; 87070; 87077; 87186; 87205; 87640; 87641; 99211; G0463